=== PATIENT | female | born 1985 | race Two or more races ===

== ENCOUNTER 2018-03-10 10:06 | Day surgery (SDC) | payer BC ==
[~2018-03-10] VITALS: Ht 154.9 cm; Wt 79.8 kg
[2018-03-10] MEDS ORDERED: LACTATED RINGERS 1,000 ML IV SCH (10:49)
[2018-03-10] MEDS ORDERED: NONE PER PT (10:51)
[2018-03-10 10:56] VITALS: BP 112/76
[2018-03-10 11:03] LABS: BASOPHILS # (AUTO) 0.03 x10^3/uL (0-0.1); BASOPHILS % (AUTO) 1 % (0-1); EOSINOPHILS # (AUTO) 0.15 x10^3/uL (0-0.4); EOSINOPHILS % (AUTO) 3 % (1-7); LYMPHOCYTES # (AUTO) 1.58 x10^3/uL (1-3.4); LYMPHOCYTES % (AUTO) 26 % (22-44); MD NO; MEAN CORPUSCULAR HEMOGLOBIN 30.2 pg (27.0-34.8); MEAN CORPUSCULAR HGB CONC 33.7 g/dL (32.4-35.8); MEAN CORPUSCULAR VOLUME 89.4 fL (80-100); MEAN PLATELET VOLUME 9.4 fL (7.4-10.4); MONOCYTES # (AUTO) 0.39 x10^3/uL (0.2-0.8); MONOCYTES % (AUTO) 7 % (2-9); NEUTROPHILS # (AUTO) 3.85 x10^3/uL (1.8-6.8); NEUTROPHILS % (AUTO) 64 % (42-75); PLATELET COUNT 208 x10^3/uL (130-400); RED BLOOD COUNT 4.45 x10^6/uL (3.82-5.3); RED CELL DISTRIBUTION WIDTH 12.6 % (9.6-15.2)
[2018-03-10] MEDS ORDERED: MISOPROSTOL 200 MCG TABLET ONE (11:59)
[2018-03-10] MEDS ORDERED: BUPIVACAINE 0.25% ONE (11:59)
[2018-03-10] MEDS ORDERED: OXYTOCIN 10 UNITS/ML, 1ML ONE (12:00)
[2018-03-10] MEDS ORDERED: SILVER NITRATE STICK TP ONE (12:00)
[2018-03-10] MEDS ORDERED: METHYLERGONOVINE 0.2 MG/ML IM ONE (12:00)
[2018-03-10] MEDS ORDERED: FENTANYL PF 100 MCG/2ML ONE (12:27)
[2018-03-10] MEDS ORDERED: MIDAZOLAM 1 MG/ML, 2ML ONE (12:27)
[2018-03-10] MEDS ORDERED: SCOPOLAMINE PATCH, 1.5MG PATCH.TD72 TD ONE (12:30)
[2018-03-10] MEDS ORDERED: ONDANSETRON ODT 8 MG PO ONE (12:30)
[2018-03-10] MEDS ORDERED: ACETAMINOPHEN 500 MG TABLET PO ONE (12:30)
[2018-03-10] MEDS ORDERED: ROCURONIUM 10MG/ML,5ML ONE (12:30)
[2018-03-10] MEDS ORDERED: PROPOFOL 10 MG/ML, 20ML ONE (12:30)
[2018-03-10] MEDS ORDERED: DEXAMETHASONE 4 MG/ML, 1ML ONE (12:46)
[2018-03-10] MEDS ORDERED: MIDAZOLAM 1 MG/ML, 2ML IV PRN (14:00)
[2018-03-10] MEDS ORDERED: OXYcodone 5 MG/5 ML ORAL.SOL UDC PO PRN (14:00)
[2018-03-10] MEDS ORDERED: ALBUTEROL SULFATE 2.5 MG/3 ML NPPB PRN (14:00)
[2018-03-10] MEDS ORDERED: ONDANSETRON ODT 8 MG PO PRN (14:00)
[2018-03-10] MEDS ORDERED: MEPERIDINE/PF 25MG/0.5ML IVPush PRN (14:00)
[2018-03-10] MEDS ORDERED: hydrALAzine 20 MG/ML, 1ML IV PRN (14:00)
[2018-03-10] MEDS ORDERED: PROMETHAZINE 12.5 MG SUPP PR PRN (14:00)
[2018-03-10] MEDS ORDERED: FENTANYL PF 100 MCG/2ML IV PRN (14:00)
[2018-03-10] MEDS ORDERED: MORPHINE SULFATE 4 MG/ML, 1ML IVPush PRN (14:00)
[2018-03-10] MEDS ORDERED: PROMETHAZINE 25 MG/ML, 1ML IV PRN (14:00)
[2018-03-10] MEDS ORDERED: LABETALOL 5MG/ML, 20ML IV PRN (14:00)
== END 2018-03-10 16:40 | disposition home or self-care (01) ==
LOC: OUT 10:06
PROVIDERS: ATTEND Obstetrics & Gynecology
DX: O02.1 Missed abortion (principal); Z3A.01 Less than 8 weeks gestation of pregnancy; Z98.890 Other specified postprocedural states
CPT/HCPCS: 36415; 59820; 76815; 85025; 86850; 86900; 88305; J1100; J2210; J2250; J2590; J2704; J3010; J3490; Q0162